=== PATIENT | female | born 1960 | race Two or more races ===

== ENCOUNTER 2022-12-25 13:56 | Inpatient (IN) | payer OTHER ==
[~2022-12-25] VITALS: Ht 170.2 cm; Wt 83.9 kg
[2022-12-26] MEDS ORDERED: VALSARTAN80 MG PO (08:52)
[2022-12-29] MEDS ORDERED: CLONAZEPAM0.5 MG PO (11:56)
[2022-12-29] MEDS ORDERED: DIOVAN160 M1 PO (11:57)
== END 2022-12-29 15:18 | disposition home or self-care (01) | DRG 641 ==
LOC: MEDI 13:56
PROVIDERS: ADMIT Internal Medicine; ATTEND Internal Medicine
PROC: BW21ZZZ Computerized Tomography (CT Scan) of Abdomen and Pelvis (ICD-10-PCS; 2022-12-25)
PROC: BW24ZZZ Computerized Tomography (CT Scan) of Chest and Abdomen (ICD-10-PCS; principal; 2022-12-26)
DX: E83.52 Hypercalcemia (principal); M48.56XA Collapsed vertebra, not elsewhere classified, lumbar region, initial encounter for fracture; D64.9 Anemia, unspecified; D89.2 Hypergammaglobulinemia, unspecified; I10 Essential (primary) hypertension